=== PATIENT | female | born 1975 | race Asian ===

== ENCOUNTER 2018-02-14 01:46 | Emergency (ER) | payer BC, OTHER | END 2018-02-14 02:44 | disposition left against medical advice (07) | LOC: JER 01:46 | DX: Z53.21 Procedure and treatment not carried out due to patient leaving prior to being seen by health care provider (principal) ==

== ENCOUNTER 2018-02-14 13:17 | Inpatient (IN) | payer BC, OTHER ==
[2018-02-14] MEDS ORDERED: CEFTRIAXONE 1,000 MG in DEXTROSE 5%-WATER - 50 ML IVPB ONE (15:22)
[2018-02-14] MEDS ORDERED: morphine CARPU-JECT 4 MG/1 ML DISP.SYRIN IVPUSH ONE (15:23)
--- NOTE | 2018-02-14 15:24 | PDOC ---
History of Present Illness - General Chief Complaint: Pain Stated Complaint: R/O ACUTE CHOLEYCYSTITIS PCP SENT Time Seen by Provider: 02/14/18 14:55 History Source: Patient Exam Limitations: No Limitations - History of Present Illness Initial Comments: 02/14/18 15:24 The patient is a 42F with no PMH who presents to the ER with RUQ pain. The patient was seen and evaluated at [facility] and was sent with results for CT and US with labwork. The patient states that she has had RUQ pain since this morning and it has worsened. It is sharp, radiates to her back, and associated with anorexia, nausea, vomiting, and chills. She denies any CP, SOB, fever, dysuria, RLQ pain, and swelling. Past History - Past Medical History Allergies/Adverse Reactions: Allergies Allergy/AdvReac Type Severity Reaction Status Date / Time No Known Allergies Allergy Verified 02/14/18 13:26 Home Medications: Ambulatory Orders NK [No Known Home Medication] 02/14/18 COPD: No - Suicide/Smoking/Psychosocial Hx Smoking History: Never smoked Information on smoking cessation initiated: No Hx Alcohol Use: No Drug/Substance Use Hx: No Substance Use Type: None Review of Systems - Review of Systems Able to Perform ROS?: Yes Comments:: 02/14/18 15:52 GENERAL/CONSTITUTIONAL: Positive for chills. No fever. No weakness. HEAD, EYES, EARS, NOSE AND THROAT: No change in vision. No ear pain or discharge. No sore throat. CARDIOVASCULAR: No chest pain, palpitations, or lightheadedness. RESPIRATORY: No cough, wheezing, shortness of breath, or hemoptysis. GASTROINTESTINAL: Positive for nausea, vomiting, diarrhea, and abdominal pain. GENITOURINARY: No dysuria, frequency, hematuria, or change in urination. MUSCULOSKELETAL: No joint or muscle swelling or pain. No neck or back pain. SKIN: No rash or lesions. NEUROLOGIC: No headache, numbness, tingling, weakness, loss of consciousness, or change in strength/sensation. ENDOCRINE: No increased thirst. No abnormal weight change. HEMATOLOGIC/LYMPHATIC: No anemia, easy bleeding, or history of blood clots. ALLERGIC/IMMUNOLOGIC: No hives or skin allergy. Is the patient limited Indonesian proficient: No *Physical Exam - Vital Signs Last Vital Signs Temp Pulse Resp BP Pulse Ox 99.2 F 96 H 18 144/80 100 02/14/18 13:28 02/14/18 13:28 02/14/18 13:28 02/14/18 13:28 02/14/18 13:28 - Physical Exam Comments: 02/14/18 16:05 GENERAL: Well developed, well nourished. Awake and alert. No acute distress. HEENT: Normocephalic, atraumatic. Hearing grossly normal. Moist mucous membranes. PERRLA, EOMI. No conjunctival pallor. Sclera are non-icteric. NECK: Supple. Full ROM. No JVD. CARDIOVASCULAR: Regular rate and rhythm. No murmurs, rubs, or gallops. PULMONARY: No evidence of respiratory distress. Lungs clear to auscultation bilaterally. No wheezing, rales or rhonchi. ABDOMINAL: Very tender to palpation over RUQ and epigastrium. Guarding. Positive subramanian's sign.. MUSCULOSKELETAL: Normal range of motion at all joints. No bony deformities or tenderness. EXTREMITIES: No cyanosis. No clubbing. No edema. No calf tenderness. SKIN: Warm and dry. Normal capillary refill. No rashes. No jaundice. NEUROLOGICAL: Alert, awake, appropriate. Cranial nerves 2-12 intact. Normal speech. Gait is normal without ataxia. PSYCHIATRIC: Cooperative. Good eye contact. Appropriate mood and affect. Heart Score/ECG Review #1 ECG reviewed & interpreted by me at: 16:40 General ECG Interpretation: Sinus Rhythm, Normal Rate, Normal Intervals, No acute ischemic changes Compared to previous ECG there are: No significant change 02/14/18 16:46 NSR Vent rate 97 QRS 88 QTc 454 No acute ischemic changes noted. ED Treatment Course - LABORATORY CBC & Chemistry Diagram: 02/14/18 15:35 02/14/18 15:35 - RADIOLOGY Radiology Studies Ordered: Category Date Time Status CHEST X-RAY PORTABLE* [RAD] Stat Radiology 02/14/18 15:22 Ordered Medical Decision Making - Medical Decision Making 02/14/18 16:06 The patient is a 42F with no PMH who presents to the ER with RUQ pain and labs indicating cholecystitis. Dr. Robledo has been informed. Labs repeated. Imaging noted for gallbladder wall thickening. 02/14/18 16:28 CBC significant for white count of 16. Order for NPO and abx placed. 02/14/18 16:49 I have spoken to Dr. Nuñez, surgery, who will see the patient today. Pt admitted to Dr. Robledo. *DC/Admit/Observation/Transfer Diagnosis at time of Disposition: RUQ pain - Discharge Dispostion Condition at time of disposition: Guarded Admit: Yes - Referrals - Patient Instructions - Post Discharge Activity
[2018-02-14 15:42] LABS: BASO % 0.2 % (0-2.0); HEMATOCRIT 43.1 % (32.4-45.2); LYMPH % 11.5 % (8-40); MCH 29.5 pg (25.7-33.7); MCHC 34.8 g/dl (32.0-36.0); MEAN CELL VOLUME 84.7 fl (80-96); MONO % 4.6 % (3.8-10.2); NEUT % 83.7 % (42.8-82.8); PLATELET COUNT 287 K/MM3 (134-434); RBC 5.09 M/mm3 (3.60-5.2); RDW 12.9 % (11.6-15.6); WHITE BLOOD COUNT 16.3 K/mm3 (4.0-10.0)
[2018-02-14] MEDS ORDERED: CEFTRIAXONE 1 GM/50 ML BAG ONE (15:43)
[2018-02-14] MEDS ORDERED: morphine SULFATE 4 MG/ML VIAL ONE (15:43)
[2018-02-14] MEDS ORDERED: ONDANSETRON 4 MG/2 ML VIAL IVPUSH ONE (15:48)
[2018-02-14] MEDS ORDERED: ONDANSETRON 4 MG/2 ML VIAL ONE (15:49)
[2018-02-14 16:05] LABS: ALBUMIN 4.4 g/dl (3.4-5.0); ANION GAP 7 (8-16); BILIRUBIN,TOTAL 0.4 mg/dL (0.2-1.0); BLOOD UREA NITROGEN 15 mg/dL (7-18); CALCIUM 9.6 mg/dL (8.5-10.1); CHLORIDE 106 mmol/L (98-107); CO2 26 mmol/L (21-32); CREATININE 0.7 mg/dL (0.55-1.02); GLUCOSE,RANDOM 101 mg/dL (74-106); LIPASE 81 U/L (73-393); POTASSIUM 4.2 mmol/L (3.5-5.1); SGOT/AST 13 U/L (15-37); SODIUM 139 mmol/L (136-145); TOT PROT 7.9 g/dl (6.4-8.2)
[2018-02-14 16:09] LABS: ALK PHOS 78 U/L (45-117); SGPT/ALT 16 U/L (12-78)
[2018-02-14 16:11] LABS: INR 1.12 (0.82-1.09); PROTHROMBIN TIME (PATIENT) 12.7 SEC (9.98-11.88)
--- NOTE | 2018-02-14 16:20 | CONSULT ---
Consult Consult Specialty:: general surgery Referred by:: salina Reason for Consultation:: acute cholecystitis - History of Present Illness Chief Complaint: abdominal pain History of Present Illness: 42yo PMH obesity presents with who presents to the ER with RUQ pain. The patient was seen and evaluated at [facility] and was sent with results for CT and US with lab work. The patient states that she has had RUQ pain since this morning and it has worsened. It is sharp, radiates to her back, and associated with anorexia, nausea, vomiting, and chills. She denies any CP, SOB, fever, dysuria, RLQ pain, and swelling. - History Source History Provided By: Patient, Medical Record Limitations to Obtaining History: No Limitations - Past Medical History Additional Medical History: obesity - Past Surgical History Past Surgical History: Yes: (X 2) - Alcohol/Substance Use Hx Alcohol Use: No - Smoking History Smoking history: Never smoked Home Medications - Allergies Allergies/Adverse Reactions: Allergies Allergy/AdvReac Type Severity Reaction Status Date / Time No Known Drug Allergies Allergy Verified 02/15/18 17:01 food seeweed and mushroom Allergy Difficulty Uncoded 02/15/18 16:48 Breathing - Home Medications Home Medications: Ambulatory Orders NK [No Known Home Medication] 02/14/18 Physical Exam Vital Signs: Vital Signs Temperature 99.2 F 02/14/18 13:28 Pulse Rate 96 H 02/14/18 13:28 Respiratory Rate 18 02/14/18 13:28 Blood Pressure 144/80 02/14/18 13:28 O2 Sat by Pulse Oximetry (%) 100 02/14/18 13:28 Constitutional: Yes: No Distress, Calm, Obese Eyes: Yes: Conjunctiva Clear, EOM Intact HENT: Yes: Atraumatic, Normocephalic Neck: Yes: Supple, Trachea Midline Cardiovascular: Yes: Regular Rate and Rhythm, S1, S2. No: Murmur Respiratory: Yes: Regular, CTA Bilaterally Gastrointestinal: Yes: Normal Bowel Sounds, Soft, Abdomen, Obese, Tenderness ( RUQ), Tenderness, Rebound. No: Ascites, Hernia, Palpable Mass, Pulsatile Mass, Tenderness, Epigastrium ...Rectal Exam: Yes: Deferred Labs: CBC, BMP 02/14/18 15:35 Imaging - Results Cat Scan: Other Ultrasound: Other Problem List - Problems (1) Obesity (BMI 30-39.9) Code(s): E66.9 - OBESITY, UNSPECIFIED (2) Leukocytosis Code(s): D72.829 - ELEVATED WHITE BLOOD CELL COUNT, UNSPECIFIED Qualifiers: Leukocytosis type: bandemia Qualified Code(s): D72.825 - Bandemia (3) Acute cholecystitis Assessment/Plan: POD#1 s/p laparoscopic cholecystectomy, doing well Agree with plan for D/C home encourage IS adequate analgesia f/u in2 weeks. Code(s): K81.0 - ACUTE CHOLECYSTITIS (4) RUQ pain Code(s): R10.11 - RIGHT UPPER QUADRANT PAIN
--- NOTE | 2018-02-14 16:32 | PDOC ---
Attending Attestation - Resident Resident Name: Matthew Meza - ED Attending Attestation I have performed the following: I have examined & evaluated the patient, The case was reviewed & discussed with the resident, I agree w/resident's findings & plan, Exceptions are as noted - HPI HPI: 02/14/18 16:38 42 years old no significant past medical history presents to the ER with right upper quadrant pain since this morning obtained an outpatient CT and ultrasound and blood work. Findings notable for acute cholecystitis. Pain is sharp radiating to her back associated with nausea. Moderate in severity no other exacerbating or alleviating factors. ROS: A complete review of 10 out of 10 review of systems is taken and is negative apart from what is previously mentioned below and in the HPI. - Physicial Exam PE: 02/14/18 16:31 Vitals: Triage Vital signs reviewed General Appearance: no acute distress, well nourished well developed, Head: Atraumatic, Cardiac: Regular rate and rhythym, no murmurs, no rubs, no gallops, Lungs: Clear to auscultation bilateral, good air movement bilaterally, Abdomen: Soft, non distended, normal bowel sounds, right upper quadrant/ epigastric tenderness to palpation. Extremities: Full range of motion to all extremities, no cyanosis, clubbing, or edema Skin: Warm and dry, no rashes or lesions, no rash, no petechiae Psych: normal mood, normal affect - Medical Decision Making 02/14/18 16:31 Diagnosis of acute cholecystitis. Surgery aware. Patient cultured made nothing by mouth and covered with ceftriaxone We'll admit to medicine for further management with surgery consult thing.
[2018-02-14] MEDS ORDERED: ONDANSETRON 4 MG/2 ML VIAL IVPB PRN (17:15)
--- NOTE | 2018-02-14 17:15 | HP ---
Admitting History and Physical - Primary Care Physician PCP: Ritu Robledo - Admission Chief Complaint: ABD PAIN RUQ PAIN NAUSEA VOMITING History of Present Illness: 42 Y/O FEMALE NO SIGNIFICANT PMHX HERE SENT FROM URGENT CARE WITH POSITIVE FINDING ON CT ABD WITH CHOLYCYSTITIS. WILL CALL SURGERY IV ABX History Source: Patient, Family Member - Smoking History Smoking history: Never smoked - Alcohol/Substance Use Hx Alcohol Use: No Home Medications - Allergies Allergies/Adverse Reactions: Allergies Allergy/AdvReac Type Severity Reaction Status Date / Time No Known Allergies Allergy Verified 02/14/18 13:26 - Home Medications Home Medications: Ambulatory Orders NK [No Known Home Medication] 02/14/18 Review of Systems - Review of Systems Constitutional: reports: Malaise, Night Sweats, Weakness Eyes: reports: No Symptoms HENT: reports: No Symptoms Neck: reports: No Symptoms Cardiovascular: reports: No Symptoms Respiratory: reports: No Symptoms Gastrointestinal: reports: Abdominal Pain, Indigestion, Nausea Genitourinary: reports: No Symptoms Musculoskeletal: reports: No Symptoms Integumentary: reports: No Symptoms Neurological: reports: No Symptoms Endocrine: reports: No Symptoms Hematology/Lymphatic: reports: No Symptoms Psychiatric: reports: No Symptoms Physical Examination Vital Signs: Vital Signs Temperature 99.2 F 02/14/18 13:28 Pulse Rate 96 H 02/14/18 13:28 Respiratory Rate 18 02/14/18 13:28 Blood Pressure 144/80 02/14/18 13:28 O2 Sat by Pulse Oximetry (%) 100 02/14/18 16:32 Constitutional: Yes: Moderate Distress Eyes: Yes: WNL HENT: Yes: WNL Neck: Yes: WNL Cardiovascular: Yes: WNL Respiratory: Yes: WNL Gastrointestinal: Yes: Tenderness Renal/: Yes: WNL Musculoskeletal: Yes: WNL Extremities: Yes: WNL Edema: No Integumentary: Yes: WNL Wound/Incision: Yes: Clean/Dry Neurological: Yes: WNL ...Motor Strength: WNL Psychiatric: Yes: WNL Labs: CBC, BMP 02/14/18 15:35 02/14/18 15:35 Problem List - Problems (1) Acute cholecystitis Code(s): K81.0 - ACUTE CHOLECYSTITIS (2) RUQ pain Code(s): R10.11 - RIGHT UPPER QUADRANT PAIN Assessment/Plan IV ABX SURGERY EVAL PREOP CLEARANCE NO CONTRAINDICATION TO SURGERY IVF NPO
[2018-02-14 17:36] VITALS: BMI 36.5
[2018-02-14] MEDS: SODIUM CHLORIDE 1,000 ML IV SCH (17:55)
[2018-02-14] MEDS: morphine SULFATE 4 MG/ML VIAL IVPUSH PRN (22:49)
[2018-02-15] MEDS: morphine SULFATE 4 MG/ML VIAL IVPUSH PRN ×2 (07:51→21:01)
[2018-02-15] MEDS: SODIUM CHLORIDE 1,000 ML IV SCH (07:55)
[2018-02-15 08:59] LABS: HEMATOCRIT 37.6 % (32.4-45.2); MCH 29.7 pg (25.7-33.7); MCHC 34.6 g/dl (32.0-36.0); MEAN CELL VOLUME 85.8 fl (80-96); MEAN PLT VOLUME 7.6 fl (7.5-11.1); PLATELET COUNT 213 K/MM3 (134-434); RBC 4.39 M/mm3 (3.60-5.2); RDW 13.1 % (11.6-15.6); WHITE BLOOD COUNT 11.6 K/mm3 (4.0-10.0)
[2018-02-15] MEDS ORDERED: cefTRIAXone SODIUM 1 GM VIAL ONE (09:03)
[2018-02-15] MEDS ORDERED: DEXTROSE 5%-WATER - 50 ML IVPB ONE (09:03)
[2018-02-15 09:30] LABS: ALBUMIN 3.5 g/dl (3.4-5.0); ANION GAP 11 (8-16); BILIRUBIN,TOTAL 0.7 mg/dL (0.2-1.0); BLOOD UREA NITROGEN 13 mg/dL (7-18); CALCIUM 8.5 mg/dL (8.5-10.1); CHLORIDE 109 mmol/L (98-107); CO2 24 mmol/L (21-32); CREATININE 0.6 mg/dL (0.55-1.02); GLUCOSE,RANDOM 94 mg/dL (74-106); POTASSIUM 3.7 mmol/L (3.5-5.1); SGOT/AST 11 U/L (15-37); SGPT/ALT 9 U/L (12-78); SODIUM 144 mmol/L (136-145)
[2018-02-15 09:32] LABS: ALK PHOS 64 U/L (45-117); TOT PROT 6.6 g/dl (6.4-8.2)
[2018-02-15] MEDS ORDERED: CEFTRIAXONE 1 GM in DEXTROSE 5%-WATER - 50 ML IVPB SCH (10:00)
--- NOTE | 2018-02-15 10:37 | EKG ---
Test Reason : Blood Pressure : / mmHG Vent. Rate : 097 BPM Atrial Rate : 097 BPM P-R Int : 134 ms QRS Dur : 088 ms QT Int : 358 ms P-R-T Axes : 058 008 087 degrees QTc Int : 454 ms NORMAL SINUS RHYTHM ABNORMAL ECG NO PREVIOUS ECGS AVAILABLE Confirmed by MD Rhett, Dion ([id number]) on 02/15/2018 10:36:44 AM Referred By: Confirmed By:Dion Delaney MD
[2018-02-15 11:27] LABS: URINE APPEARANCE SLCLOUDY; URINE BILIRUBIN NEGATIVE (<2.0 mg/dL); URINE COLOR DKYELLOW; URINE GLUCOSE (UA) NEGATIVE (NEGATIVE); URINE KETONE 2+ (NEGATIVE); URINE NITRITE NEGATIVE (NEGATIVE); URINE PROTEIN NEGATIVE (NEGATIVE)
[2018-02-15 11:31] LABS: URINE LEUK ESTERASE 1+ (NEGATIVE)
[2018-02-15 11:41] LABS: EPI CELLS RARE /HPF (FEW); URINE BACTERIA RARE /hpf (NONE SEEN); URINE MUCUS FEW
[2018-02-15] MEDS ORDERED: fentaNYL CITRATE 250 MCG/5 ML VIAL ONE (15:40)
[2018-02-15] MEDS ORDERED: MIDAZOLAM HCL 2 MG/2 ML SINGLE DOSE VIAL ONE ×2 (15:41)
[2018-02-15] MEDS ORDERED: ROCURONIUM BROMIDE 50 MG/5 ML VIAL ONE (15:41)
[2018-02-15] MEDS ORDERED: PROPOFOL 20 ML ONE ×2 (15:41→17:12)
[2018-02-15] MEDS ORDERED: CEFOXITIN SODIUM 2 GM IVPB ONE (16:07)
--- NOTE | 2018-02-15 16:30 | PN ---
Progress Note, Physician Chief Complaint: S/P CHOLCYSTECTOMY COMFORTABLE ASLEEP - Current Medication List Current Medications: Active Medications Sodium Chloride (Normal Saline -) 1,000 mls @ 83 mls/hr IV ASDIR DAVINA Last Admin: 02/15/18 07:55 Dose: 83 mls/hr Ceftriaxone Sodium 1 gm/ (Dextrose) 50 mls @ 100 mls/hr IVPB DAILY [facility] Last Admin: 02/15/18 10:41 Dose: 100 mls/hr Metronidazole (Flagyl 500mg Premixed Ivpb -) 500 mg in 100 mls @ 100 mls/hr IVPB Q8H-IV DAVINA Last Admin: 02/15/18 09:31 Dose: 100 mls/hr Morphine Sulfate (Morphine Sulfate) 4 mg IVPUSH Q6H PRN PRN Reason: PAIN LEVEL 6-10 Last Admin: 02/15/18 07:51 Dose: 4 mg Ondansetron HCl (Zofran Injection) 8 mg IVPB Q6H PRN PRN Reason: NAUSEA - Objective Vital Signs: Vital Signs Temperature 98.2 F 02/15/18 15:06 Pulse Rate 91 H 02/15/18 15:06 Respiratory Rate 20 02/15/18 15:06 Blood Pressure 134/84 02/15/18 15:06 O2 Sat by Pulse Oximetry (%) 95 02/15/18 09:00 Constitutional: Yes: Mild Distress Eyes: Yes: WNL HENT: Yes: WNL Neck: Yes: WNL Cardiovascular: Yes: WNL Respiratory: Yes: WNL Gastrointestinal: Yes: Tenderness Genitourinary: Yes: Other Musculoskeletal: Yes: WNL Extremities: Yes: WNL Edema: No Peripheral Pulses WNL: Yes Integumentary: Yes: WNL Wound/Incision: Yes: Dressing Dry and Intact Neurological: Yes: WNL ...Motor Strength: WNL Psychiatric: Yes: WNL Labs: CBC, BMP 02/15/18 07:50 02/15/18 07:50 INR, PTT INR 1.12 (0.82-1.09) 02/14/18 15:35 Problem List - Problems (1) Acute cholecystitis Code(s): K81.0 - ACUTE CHOLECYSTITIS (2) RUQ pain Code(s): R10.11 - RIGHT UPPER QUADRANT PAIN Assessment/Plan S/P LAP CHOL IVF PAIN CONTROL CLEAR DIET IN MORNING DVT PROPHYLAXIS OOB TO CHAIR INCENTIVE SPIROMETRY IV ABX
[2018-02-15] MEDS ORDERED: BUPIVACAINE HCL/PF 0.5% (5MG/ML) 10 ML VIAL IJ ONE ×2 (17:02→17:21)
[2018-02-15] MEDS ORDERED: NEOSTIGMINE METHYLSULFATE 0.5 MG/ML - 10 ML MDV ONE (17:05)
[2018-02-15] MEDS ORDERED: GLYCOPYRROLATE 0.2 MG/1 ML VIAL ONE (17:05)
[2018-02-15] MEDS ORDERED: ONDANSETRON 4 MG/2 ML VIAL ONE (17:05)
[2018-02-15] MEDS ORDERED: MEPERIDINE HCL CARPU-JECT 25 MG/1 ML DISP.SYRIN ONE (17:34)
[2018-02-15] MEDS ORDERED: MEPERIDINE HCL CARPU-JECT 25 MG/1 ML DISP.SYRIN IVPUSH ONE ×3 (17:35→19:00)
[2018-02-15] MEDS ORDERED: ONDANSETRON 4 MG/2 ML VIAL IVPUSH PRN ×2 (17:43→18:38)
[2018-02-15] MEDS ORDERED: LACTATED RINGERS SOLUTION 1,000 ML IV SCH (17:45)
--- NOTE | 2018-02-15 18:05 | OP ---
Operative Note - Note: Operative Date: 02/15/18 Pre-Operative Diagnosis: Acute Cholecystitis Operation: Laparoscopic Cholecystectomy Findings: distended edematous and inflamed gallbladder, critical view identified. 55ml of green bile decompressed before dissecting Post-Operative Diagnosis: Same as Pre-op Surgeon: Evan Nuñez Donor Processor: Mode Miller Anesthesiologist/SHIPSMITH: Edmundo Love Anesthesia: General, Local (0.5% marcaine) Estimated Blood Loss (mls): 5 Fluid Volume Replaced (mls): 800 Operative Report Dictated: Yes
[2018-02-15] MEDS ORDERED: D5-1/2NS+20 MEQ KCL - 20 MEQ/1,000 ML INFUS.BAG IV SCH (18:15)
[2018-02-15] MEDS ORDERED: ONDANSETRON 4 MG/2 ML VIAL IVPB PRN (18:38)
[2018-02-15] MEDS ORDERED: morphine SULFATE 4 MG/ML VIAL IVPUSH ONE (23:45)
[2018-02-16] MEDS: morphine SULFATE 4 MG/ML VIAL IVPUSH PRN (06:28)
[2018-02-16 07:34] LABS: BASO % 0.4 % (0-2.0); HEMATOCRIT 33.6 % (32.4-45.2); HEMOGLOBIN 11.6 GM/dL (10.7-15.3); LYMPH % 14.7 % (8-40); MCH 29.7 pg (25.7-33.7); MCHC 34.7 g/dl (32.0-36.0); MEAN CELL VOLUME 85.6 fl (80-96); MEAN PLT VOLUME 7.8 fl (7.5-11.1); MONO % 6.8 % (3.8-10.2); NEUT % 78.1 % (42.8-82.8); PLATELET COUNT 210 K/MM3 (134-434); RBC 3.92 M/mm3 (3.60-5.2); RDW 12.7 % (11.6-15.6)
[2018-02-16 08:57] LABS: CHLORIDE 109 mmol/L (98-107); SODIUM 140 mmol/L (136-145)
[2018-02-16 09:05] LABS: ALBUMIN 2.9 g/dl (3.4-5.0); ALK PHOS 53 U/L (45-117); ANION GAP 8 (8-16); BILIRUBIN,TOTAL 0.4 mg/dL (0.2-1.0); BLOOD UREA NITROGEN 11 mg/dL (7-18); CALCIUM 7.9 mg/dL (8.5-10.1); CO2 23 mmol/L (21-32); CREATININE 0.5 mg/dL (0.55-1.02); GLUCOSE,RANDOM 87 mg/dL (74-106); SGOT/AST 27 U/L (15-37); SGPT/ALT 16 U/L (12-78); TOT PROT 5.6 g/dl (6.4-8.2)
[2018-02-16] MEDS ORDERED: DEXTROSE 5%-WATER - 50 ML IVPB ONE (09:27)
[2018-02-16] MEDS ORDERED: cefTRIAXone SODIUM 1 GM VIAL ONE (09:27)
[2018-02-16] MEDS ORDERED: CEFTRIAXONE 1 GM in DEXTROSE 5%-WATER - 50 ML IVPB SCH (10:00)
[2018-02-16] MEDS ORDERED: ACETAMINOPHEN 325 MG TABLET (FP) PO PRN (10:56)
--- NOTE | 2018-02-16 10:58 | DS ---
Physical Examination Vital Signs: Vital Signs Temperature 98.3 F 02/16/18 09:15 Pulse Rate 89 02/16/18 09:15 Respiratory Rate 20 02/16/18 09:15 Blood Pressure 116/71 02/16/18 09:15 O2 Sat by Pulse Oximetry (%) 98 02/15/18 21:00 Findings/Remarks: AWAKE ALERT + URINE OUTPUT +AAPETITE NO PAIN OR FEVERS Constitutional: Yes: No Distress Eyes: Yes: WNL HENT: Yes: WNL Neck: Yes: WNL, Rigid Respiratory: Yes: WNL Gastrointestinal: Yes: Other (POSTOP TENDERNESS, CLEAN SITE) Renal/: Yes: WNL Musculoskeletal: Yes: WNL Extremities: Yes: WNL Edema: No Peripheral Pulses WNL: Yes Integumentary: Yes: WNL Wound/Incision: Yes: Clean/Dry Neurological: Yes: WNL ...Motor Strength: WNL Psychiatric: Yes: WNL Labs: CBC, BMP 02/16/18 07:05 02/16/18 07:05 Discharge Summary Reason For Visit: RT UPPER QUADRANT ABD PAIN Current Active Problems Acute cholecystitis (Acute) Leukocytosis (Acute) Obesity (BMI 30-39.9) (Acute) RUQ pain (Acute) Procedures: Principal: LAPCHOL Hospital Course: ADMITTED RUQ PAIN WITH CHOLCYSTITIS, LAP CHOL DONE NO COMPLICATIONS, DC HOME Condition: Improved - Instructions Diet, Activity, Other Instructions: SEE YOUR PMD IN 2 DAYS LOW FAT DIET Referrals: Ritu Robledo MD [Primary Care Provider] - Disposition: HOME - Home Medications Comprehensive Discharge Medication List: Ambulatory Orders NK [No Known Home Medication] 02/14/18
--- NOTE | 2018-02-16 11:21 | PN ---
Progress Note, Physician Chief Complaint: abdominal pain History of Present Illness: 42yo PMH obesity presents with who presents to the ER with RUQ pain. The patient was seen and evaluated at [facility] and was sent with results for CT and US with lab work. - Current Medication List Current Medications: Active Medications Acetaminophen (Tylenol -) 650 mg PO Q6H PRN PRN Reason: PAIN OR FEVER - Objective Vital Signs: Vital Signs Temperature 98.3 F 02/16/18 09:15 Pulse Rate 89 02/16/18 09:15 Respiratory Rate 20 02/16/18 09:15 Blood Pressure 116/71 02/16/18 09:15 O2 Sat by Pulse Oximetry (%) 98 02/15/18 21:00 Constitutional: Yes: No Distress, Calm Eyes: Yes: Conjunctiva Clear, EOM Intact HENT: Yes: Atraumatic, Normocephalic Cardiovascular: Yes: Regular Rate and Rhythm Respiratory: Yes: Regular, CTA Bilaterally Gastrointestinal: Yes: Normal Bowel Sounds, Soft, Abdomen, Obese. No: Tenderness ...Rectal Exam: Yes: Deferred Genitourinary: No: CVA Tenderness - Left, CVA Tenderness - Right Extremities: No: Cool, Cyanosis Wound/Incision: Yes: Clean/Dry, Well Approximated, Steri Strips Neurological: Yes: Alert, Oriented Psychiatric: Yes: Alert, Oriented Labs: CBC, BMP 02/16/18 07:05 02/16/18 07:05 INR, PTT INR 1.12 (0.82-1.09) 02/14/18 15:35 Problem List - Problems (1) Acute cholecystitis Assessment/Plan: POD#1 s/p laparoscopic cholecystectomy, doing well Agree with plan for D/C home encourage IS adequate analgesia f/u in2 weeks. Code(s): K81.0 - ACUTE CHOLECYSTITIS (2) Obesity (BMI 30-39.9) Code(s): E66.9 - OBESITY, UNSPECIFIED (3) Leukocytosis Code(s): D72.829 - ELEVATED WHITE BLOOD CELL COUNT, UNSPECIFIED Qualifiers: Leukocytosis type: bandemia Qualified Code(s): D72.825 - Bandemia (4) RUQ pain Code(s): R10.11 - RIGHT UPPER QUADRANT PAIN
[2018-02-16 14:32] VITALS: BP 115/72; PULSE 83; TEMP 97.7
--- NOTE | 2018-02-18 09:36 | PATH ---
Surgical Pathology Report Patient Name: STAN BEDOLLA [facility]. Rec. #: [id number] /Age/Gender: 1975 (Age: 42) / F Account: [id number] Location: [address] [place] [address]/[facility] Taken: 02/15/2018 Received: 02/16/2018 Reported: 02/18/2018 Physicians: Evan Nuñez M.D. Specimen(s) Received GALLBLADDER AND STONES Clinical History Acute cholecystitis Final Diagnosis GALLBLADDER, CHOLECYSTECTOMY: ACUTE AND CHRONIC CHOLECYSTITIS, AND CHOLELITHIASIS. BENIGN PERICYSTIC LYMPH NODE PRESENT. Electronically Signed Abdullahi Ricketts M.D. Gross Description Received in formalin, labeled with the patient's name and indicated on the requisition to be "gallbladder and stones," is a 9 x 4.5 x 3.4 cm. gallbladder with a 0.2 cm. in length portion of cystic duct attached. The outer surface is sneed and varies from smooth to shaggy. The lumen contains red fluid, along with 10 yellow polyhedral calculi each of which is between 0.8 and 1.2 cm in greatest dimension. The mucosa is red and putnam with a velvety surface. The wall of the gallbladder measures 0.7 cm. in thickness. A possible pericystic lymph node is present. [employer] sections are submitted in one cassette. [facility]/02/16/2018 [facility]/02/16/2018
--- NOTE | 2018-02-21 14:11 | OP ---
DATE OF OPERATION: 02/15/2018 PREOPERATIVE DIAGNOSIS: Acute cholecystitis. POSTOPERATIVE DIAGNOSIS: Acute cholecystitis. PROCEDURE: Laparoscopic cholecystectomy. ATTENDING SURGEON: Evan Nuñez MD MAINTENANCE ENGINEER OIL FIELD: Mode Miller MD ANESTHESIA: Edmundo Love MD, general with local 0.5% Marcaine a total of 20 mL given in the area in block fashion. ESTIMATED BLOOD LOSS: 5 mL. IV FLUID: 800 mL crystalloid. SPECIMEN: Sent for pathology, gallbladder and stones. FINDINGS: A distended, edematous gallbladder. It was inflamed. Crual view was identified. There was 55 mL green bile was decompressed before dissection of the gallbladder from the liver. INDICATIONS: The patient is a 42-year-old female presenting with right upper quadrant pain first episode, slight leukocytosis, and ultrasound confirming the presence of acute cholecystitis. In addition, she had a CT. Her workup was done at an outside institution. Studies were reviewed preoperatively. She was counseled regarding the risks, benefits, and alternatives to surgical excision, signed informed consent, and was taken for the procedure. DESCRIPTION OF PROCEDURE: The patient was brought to the operating room. Placed in supine position on the operating room table with the right arm tucked and the left arm extended 90 degrees perpendicular to the body's axis. The lower extremities had bilateral SCDs placed. The patient was induced with general anesthesia and endotracheally intubated at which point we proceeded with shave, prep, and drape of the anterior abdominal wall. We proceeded first with sterile prep and drape. Once this was completed, a formal time-out was completed identifying the operative procedure. With all parties in agreement, we proceeded with standard Garcia entry in the supraumbilical position. A 15-blade scalpel was used to incise the skin. The incision was deepened and widened with Bovie cautery to the anterior fascia. The fascia was elevated and then entered bluntly towards the umbilicus. Once intra-abdominal viscera was cleared, Garcia port was installed into the abdomen, and pneumoperitoneum was established at 15 mmHg. A 5-mm 30-degree scope was then used to inspect the site. They appeared to be atraumatic at which point we looked towards the right upper quadrant identifying the distended gallbladder. Additional port sites were installed under direct visualization 5 mm at the subxiphoid position and 2 in the right abdomen. An Endo decompression needle with the gallbladder grasped was used to decompress the dome of the gallbladder under direct visualization 55 mL of green bile. The entry of the needle was then grasped and retracted cranially, and the infundibulum of the gallbladder was used to retract towards the right side of the abdomen. The cystic structures were then identified. They were dissected using a [place] dissector, and planes were developed posterior to the cystic duct and cystic artery. Once the structures had been identified and the critical view was noted, the cystic duct and artery were transected using 5-mm clips from the subxiphoid position. They were transected using Endo August and then we began elevation of the gallbladder from the liver bed using a hook Bovie cautery. Once completed, the camera was re-sided to the subxiphoid position, and the gallbladder was retrieved through an umbilical port. This was done without spillage. Care was taken then to re-establish a pneumoperitoneum and inspect the site on the liver bed. Hemostasis was obtained using Bovie cautery where necessary. A small amount of irrigation was done. Clots were suctioned. Instrument counts were correct. The pneumoperitoneum was then relieved after the ports were removed under direct visualization. Care was then taken to close each of the port site, first the umbilical using 0 Vicryl in interrupted fashion figure of eight to ablate the space and then 4-0 Vicryl at the level of the skin in subcuticular fashion. Skin was cleaned. Sterile dressings were placed. Counts were correct. The patient was returned to recovery in stable condition. Tolerated procedure well. MD FREDIS [id number]
== END 2018-02-16 14:34 | disposition home or self-care (01) | DRG 419 ==
LOC: JER 13:17 → JERBED 15:24 → J5S 17:08
PROVIDERS: ADMIT Family Medicine; ATTEND Family Medicine
PROC: 0FT44ZZ Resection of Gallbladder, Percutaneous Endoscopic Approach (ICD-10-PCS; principal; 2018-02-15 16:45)
DX: K81.0 Acute cholecystitis (principal); E66.8 Other obesity; Z68.36 Body mass index [BMI] 36.0-36.9, adult; D72.829 Elevated white blood cell count, unspecified; R10.11 Right upper quadrant pain; R11.2 Nausea with vomiting, unspecified
CPT/HCPCS: 36415; 71045-TC-FY; 80053; 81003; 81015; 83690; 84703; 85025; 85027; 85610; 86850; 86900; 86901; 93005; 93010; 94010; 94760; 99284-25; J7030

== ENCOUNTER 2018-03-23 14:16 | Emergency (ER) | payer OTHER ==
[2018-03-23 14:22] VITALS: BP 117/82; PULSE 78; TEMP 98.1; BMI 36.1
--- NOTE | 2018-03-23 15:15 | CONSULT ---
Consult Consult Specialty:: general surgery Reason for Consultation:: right abdominal port site dehissance (s/p Lap Haleigh) - History of Present Illness Chief Complaint: right abdominal post op wound infection History of Present Illness: 42 yo female no significant PMH s/p Laparoscopic cholecystectomy 02/15/2018 she reports having accidentally hitting her abdomen this weekend and having dislodged a scab on her right abdominal wound laparoscopic port site. She noted some drainage this morning. She denies any associated fever or chills. She is in today for evaluation. - History Source History Provided By: Patient, Medical Record Limitations to Obtaining History: No Limitations - Past Medical History ...LMP: 01/23/18 Additional Medical History: obesity - Past Surgical History Past Surgical History: Yes: (X 2) - Alcohol/Substance Use Hx Alcohol Use: No - Smoking History Smoking history: Never smoked Home Medications - Allergies Allergies/Adverse Reactions: Allergies Allergy/AdvReac Type Severity Reaction Status Date / Time No Known Drug Allergies Allergy Verified 03/23/18 14:17 food seeweed and mushroom Allergy Difficulty Uncoded 03/23/18 14:17 Breathing - Home Medications Home Medications: Ambulatory Orders Amox-Tr/K Cl [Augmentin - 875Mg Tablet] 1 tab PO BID 7 Days #14 tablet 03/23/18 Review of Systems - Review of Systems Constitutional: denies: Chills, Fever Eyes: denies: Blurred Vision, Recent Change in Vision HENT: denies: Difficult Swallowing, Throat Pain Neck: denies: Pain on Movement, Tenderness Cardiovascular: denies: Chest Pain, Palpitations Respiratory: denies: Cough, SOB Gastrointestinal: denies: Abdominal Pain, Constipation, Diarrhea Genitourinary: denies: Burning, Discharge Breasts: reports: No Symptoms Reported. denies: Pain Musculoskeletal: denies: Joint Swelling, Muscle Weakness Integumentary: denies: Lesions, Rash Neurological: denies: Seizure, Syncope Endocrine: denies: Unexplained Weight Gain, Unexplained Weight Loss Hematology/Lymphatic: denies: Easily Bruised, Excessive Bleeding Psychiatric: denies: Anxiety, Depression Physical Exam Vital Signs: Vital Signs Temperature 98.1 F 03/23/18 14:18 Pulse Rate 78 03/23/18 14:18 Respiratory Rate 18 03/23/18 14:18 Blood Pressure 117/82 03/23/18 14:18 O2 Sat by Pulse Oximetry (%) 100 03/23/18 14:18 Constitutional: Yes: No Distress, Calm, Obese Eyes: Yes: Conjunctiva Clear, EOM Intact HENT: Yes: Atraumatic, Normocephalic Neck: Yes: Supple, Trachea Midline Cardiovascular: Yes: Regular Rate and Rhythm, S1, S2 Respiratory: Yes: Regular, CTA Bilaterally Gastrointestinal: Yes: Normal Bowel Sounds, Soft Renal/: No: CVA Tenderness - Left, CVA Tenderness - Right Musculoskeletal: No: Muscle Pain, Muscle Weakness Extremities: No: Cool, Cyanosis Edema: No Peripheral Pulses WNL: Yes Integumentary: No: Jaundice, Rash Wound/Incision: Yes: Open to air, Sutures Removed, Reddened, Other (1cm X1cm X1cm right lateral abdominal wall. fibrinous exudate with surrounding erythema 1cm.) Neurological: Yes: Alert, Oriented Psychiatric: Yes: Alert, Oriented Problem List - Problems (1) Postoperative wound breakdown Assessment/Plan: 42 yo female no significant PMH s/p Laparoscopic cholecystectomy 02/15/2018 now with a right abdominal wound laparoscopic port site dehissance and infection. Bedside debridement of wound PO antibiotics for 7 days Arrange for VNS to teach the patient 2-3 times weekly for a few visits Location: Right lateral abdominal wall wound Measurement: [id number] some fibrionous exudate, and a 1cm rim of erythema Dressin/4" iodoform, 2X2 inch gauze and tape f/u in two weeks in surgery clinic with Dr. Nuñez Code(s): T81.31XA - DISRUPTION OF EXTERNAL OPERATION (SURGICAL) WOUND, NEC, INIT Qualifiers: Encounter type: initial encounter Qualified Code(s): T81.31XA - Disruption of external operation (surgical) wound, not elsewhere classified, initial encounter (2) Postoperative wound cellulitis Code(s): T81.4XXA - INFECTION FOLLOWING A PROCEDURE, INITIAL ENCOUNTER Qualifiers: Encounter type: initial encounter Qualified Code(s): T81.4XXA - Infection following a procedure, initial encounter
--- NOTE | 2018-03-23 15:42 | PDOC ---
History of Present Illness - General Chief Complaint: Wound Stated Complaint: SENT BY PCP Time Seen by Provider: 03/23/18 14:49 History Source: Patient Exam Limitations: No Limitations - History of Present Illness Initial Comments: 03/23/18 15:[address] Persaud for wound- draining wound from trocar site. , and wound care. Denies pain/ fevers/ problems Timing/Duration: unsure Severity: mild Associated Symptoms: reports: denies symptoms Past History - Travel Traveled outside of the country in the last 30 days: No Close contact w/someone who was outside of country & ill: No - Past Medical History Allergies/Adverse Reactions: Allergies Allergy/AdvReac Type Severity Reaction Status Date / Time No Known Drug Allergies Allergy Verified 03/23/18 14:17 food seeweed and mushroom Allergy Difficulty Uncoded 03/23/18 14:17 Breathing Home Medications: Ambulatory Orders Amox-Tr/K Cl [Augmentin - 875Mg Tablet] 1 tab PO BID 7 Days #14 tablet 03/23/18 Anemia: No Asthma: No Cancer: No Cardiac Disorders: Yes (h/o heart mumur) CVA: No COPD: No CHF: No Dementia: No Diabetes: No GI Disorders: Yes (abdominal pain gallbladder) Disorders: No HTN: No Hypercholesterolemia: No Liver Disease: No Seizures: No Thyroid Disease: No - Surgical History Appendectomy: No Cardiac Surgery: No Cholecystectomy: Yes Lung Surgery: No Neurologic Surgery: No Orthopedic Surgery: No - Suicide/Smoking/Psychosocial Hx Smoking History: Never smoked Cigars Per Day: 0 Hx Alcohol Use: No Drug/Substance Use Hx: No Substance Use Type: None Hx Substance Use Treatment: No Review of Systems - Review of Systems Able to Perform ROS?: Yes Is the patient limited Khmer proficient: Yes Constitutional: Yes: See HPI. No: Symptoms Reported, Fever ABD/GI: Yes: Symptoms Reported, See HPI, Other (mild tenderness to wound sites ) . No: Abdominal Distended Musculoskeletal: No: Symptoms Reported Integumentary: Yes: Symptoms Reported, See HPI, Other Neurological: Yes: Symptoms reported All Other Systems: Reviewed and Negative *Physical Exam - Vital Signs Last Vital Signs Temp Pulse Resp BP Pulse Ox 98.1 F 78 18 117/82 100 03/23/18 14:18 03/23/18 14:18 03/23/18 14:18 03/23/18 14:18 03/23/18 14:18 - Physical Exam General Appearance: Yes: Nourished, Appropriately Dressed. No: Apparent Distress HEENT: positive: VARUN, Normal ENT Inspection, TMs Normal, Pharynx Normal Gastrointestinal/Abdominal: positive: Soft. negative: Tender, Distended, Guarding, Rebound Extremity: positive: Normal Range of Motion. negative: Normal Capillary Refill Integumentary: positive: Normal Color, Warm (tunnelling wound to upper mid quad / mright ) Neurologic: positive: gifted teacher II-XII NML intact, Fully Oriented, Alert, Normal Mood/ Affect, Normal Response, Motor Strength 03/12 *DC/Admit/Observation/Transfer Diagnosis at time of Disposition: Visit for wound check - Discharge Dispostion Disposition: HOME Condition at time of disposition: Stable Decision to Admit order: No - Prescriptions Prescriptions: Amox-Tr/K Cl [Augmentin - 875Mg Tablet] 1 tab PO BID 7 Days #14 tablet - Referrals Referrals: Ritu Robledo MD [Primary Care Provider] - Evan Nuñez MD [Staff Physician] - - Patient Instructions Printed Discharge Instructions: DI for Wound Infection, Surgical Site Infection Additional Instructions: Postoperative instructions: You had a debridement of right abdominal on [address] Evan Nuñez of [facility]. Wound care: Location: Right lateral abdominal wall wound Measurement: [id number] some fibrionous exudate, and a 1cm rim of erythema Dressin/4" iodoform, 2X2 inch gauze and tape Activity: You may shower daily starting then, just pat the wound areas dry. Pain: For pain, you may use and alternate Tylenol (acetaminophen) and/or ibuprofen every 6 hours each as needed; this means that you can take one OR the other at 3-hour intervals. Follow-up: Call Dr. Miller's office at [phone] to make your postop appointment (Wednesday 1-2 weeks after surgery as advised). Clinic is held in the Diagnostic [facility] on the first floor of [facility]. Call the office if you have: * increasing pain not responsive to pain medication * fever of 101F or higher * unusual or increasing bleeding or drainage from wounds * increasing redness or swelling at wound sites Also, see your primary medical doctor within 1-2 weeks. - Post Discharge Activity
--- NOTE | 2018-03-23 15:44 | PROC ---
Incision and Drainage Indication/Location: right lateral abdominal wall Risks and Benefits Explained: Yes Betadine cleansed: Yes Anesthesia: 1% Lidocaine Blade Size: 11 Drainage: none Irrigated with Normal Saline: Yes Iodinated Packin/4 in Sterile Dressing Applied: Yes - Remarks Remarks: 1cm rim or surrounding erythema, fibrinous exudate, no purulent drainage, no culture, [id number] packed with 1/4inch iodoform
== END 2018-03-23 16:05 | disposition home or self-care (01) ==
LOC: JERFT 14:16
PROC: 0W9F00Z Drainage of Abdominal Wall with Drainage Device, Open Approach (ICD-10-PCS; principal; 2018-03-23)
DX: Z48.01 Encounter for change or removal of surgical wound dressing (principal)
CPT/HCPCS: 99281-25

== ENCOUNTER 2018-03-25 15:58 | Emergency (ER) | payer OTHER ==
--- NOTE | 2018-03-25 16:21 | PDOC ---
Rapid Medical Evaluation Time Seen by Provider: 03/25/18 16:18 Medical Evaluation: Allergies Allergy/AdvReac Type Severity Reaction Status Date / Time No Known Drug Allergies Allergy Verified 03/23/18 14:17 food seeweed and mushroom Allergy Difficulty Uncoded 03/23/18 14:17 Breathing I have performed a brief in-person evaluation of this patient. The patient presents with a chief complaint of: needs gallbladder dressing changed; supposed to be seen by Dr. Miller; currently on day 3 of augmentin for wound infection Pertinent physical exam findings: dressing to right upper flank region I have ordered the following: nothing The patient will proceed to the ED for further evaluation. Discharge Disposition - Diagnosis Visit for wound check - Referrals - Patient Instructions - Post Discharge Activity
[2018-03-25 16:26] VITALS: BP 135/88; PULSE 68; TEMP 98.7; BMI 36.1
--- NOTE | 2018-03-25 16:42 | PDOC ---
Suture Removal/Wound Check HPI - History of Present Illness Chief Complaint: Revisit,Wound Recheck Stated Complaint: REVISIT/ DRESSING CHANGE (PCP SENT) Time Seen by Provider: 03/25/18 16:18 History Source: Yes: Patient Exam Limitations: Yes: No Limitations Treated at: [facility] ED - Previous ED Treatment Type of procedure performed on last visit: Yes: I&D of Abscess Tetanus Immunization: Yes: Up to Date Antibiotics Prescribed: No - Onset of Previous Treatment Comment:: 03/25/18 17:11 Patient came to the emergency department for patient came to emergency department for wound check and dressing change. Was seen by Dr. Persaud here 2 days ago and right mid quadrant wound site was cleaned and packed with iodoform gauze. Home health/visiting nurse service was to a been organized for wound care and follow-up. Patient states was never called or no follow-up appointments made by anyone. [facility] discussed this with Dr. Persaud's office twice today who stated if visiting nurse didn't call she should call her private physician. By the time this all had been discussed, patient's private physicians office was closed for the weekend. Had been draining patient was uncertain as to direction therefore came to emergency department for wound check and dressing change. Denies pain, fevers, bloating, worsened drainage. States is continuing antibiotics and has only needed Tylenol for mild pain relief. Past History - Travel Traveled outside of the country in the last 30 days: No Close contact w/someone who was outside of country & ill: No - Past Medical History Allergies/Adverse Reactions: Allergies Allergy/AdvReac Type Severity Reaction Status Date / Time No Known Drug Allergies Allergy Verified 03/25/18 16:22 food seeweed and mushroom Allergy Difficulty Uncoded 03/25/18 16:22 Breathing Home Medications: Ambulatory Orders Amox-Tr/K Cl [Augmentin - 875Mg Tablet] 1 tab PO BID 7 Days #14 tablet 03/23/18 Anemia: No Asthma: No Cancer: No Cardiac Disorders: Yes (h/o heart mumur) CVA: No COPD: No CHF: No Dementia: No Diabetes: No GI Disorders: Yes (abdominal pain gallbladder) Disorders: No HTN: No Hypercholesterolemia: No Liver Disease: No Seizures: No Thyroid Disease: No - Surgical History Appendectomy: No Cardiac Surgery: No Cholecystectomy: Yes Lung Surgery: No Neurologic Surgery: No Orthopedic Surgery: No - Suicide/Smoking/Psychosocial Hx Smoking History: Never smoked Cigars Per Day: 0 Hx Alcohol Use: No Drug/Substance Use Hx: No Substance Use Type: None Hx Substance Use Treatment: No Suture Removal/Wound Check PE - Physical Exam Laceration/Wound Check Symptoms: reports: None. denies: Fever, Chills Current Severity Level: None Maximum Severity Level: None Pain Localization: None *Review of Systems - Review of Systems Able to Perform ROS?: Yes Constitutional: Yes: Symptoms Reported, See HPI. No: Fever, Malaise HEENTM: Yes: Symptoms Reported ABD/GI: Yes: See HPI. No: Symptoms Reported, Nausea, Vomiting All Other Systems: Reviewed and Negative Medical Decision Making - Medical Decision Making 03/25/18 17:15 Packing removed without incident, revealing some mild purulent drainage and wound site approximately 1 cm deep. No redness, tenderness, or worsened cellulitis noted. Cleaned and repacked with half-inch iodoform gauze and dressing. Instructed to remove packing on Wednesday if drainage is lessened or none and clean wound in shower daily until well-healed. If there is significant amount of drainage consistent with what was shown today to leave packing intact , redress to keep area clean, and follow-up with surgeons office on Wednesday. Understands to continue antibiotics, and to return to emergency department for worsened pain, drainage, swelling or fever. *DC/Admit/Observation/Transfer Diagnosis at time of Disposition: Visit for wound check - Discharge Dispostion Disposition: HOME Condition at time of disposition: Stable Decision to Admit order: No - Referrals Referrals: Ritu Robledo MD [Primary Care Provider] - - Patient Instructions - Post Discharge Activity
== END 2018-03-25 17:20 | disposition home or self-care (01) ==
LOC: JER 15:58 → JERFT 15:58
DX: Z48.01 Encounter for change or removal of surgical wound dressing (principal); Z98.890 Other specified postprocedural states
CPT/HCPCS: 99281-25

== ENCOUNTER 2018-11-06 01:27 | Emergency (ER) | payer OTHER ==
[2018-11-06 02:06] VITALS: BP 110/65; PULSE 94; TEMP 98.6; BMI 35.2
[2018-11-06] MEDS ORDERED: LORATADINE 10 MG TABLET PO ONE (02:47)
[2018-11-06] MEDS ORDERED: TRIAMCINOLONE ACET 40MG/1ML VIAL IM ONE (03:31)
--- NOTE | 2018-11-06 03:31 | PDOC ---
History of Present Illness - General Chief Complaint: Allergic Reaction Stated Complaint: ALLERGIC REACTION/HIVES Time Seen by Provider: 11/06/18 02:29 History Source: Patient Exam Limitations: No Limitations - History of Present Illness Initial Comments: 11/06/18 02:49 HISTORY OF PRESENT ILLNESS: 43-year-old woman past medical history of PCOS and cholecystectomy who presents to the emergency department for evaluation of hives to her body. She reports she has had pruritic hives to her body for the past 24 hours. Patient states she was seen in urgent care center today and was told to apply cortisone cream to the lesions. Patient states she tried hydrocortisone cream with minimal relief has been taking Benadryl 50 mg every 4 hours with minimal relief. Patient states she took her son's "asthma medicine" which has not helped with her symptoms. Patient denies any change in soaps, shampoos, conditioners, lotions, cosmetics, perfumes, laundry detergents, fabric softeners, distal common foods. Patient states her doctor increased her dose of spironolactone 25 mg to 50 mg 2 weeks ago but has had no problems up until yesterday. She denies throat itching or SOB. No recent travel or sick contacts. PAST MEDICAL HISTORY: see HPI SURGICAL HISTORY: see HPI ALLERGIES: No known drug allergies REVIEW OF SYSTEMS General/Constitutional: Denies fever or chills. Denies weakness, weight change. HEENT: Denies change in vision. Denies ear pain or discharge. Denies sore throat. Cardiovascular: Denies chest pain or shortness of breath. Respiratory: Denies cough, wheezing, or hemoptysis. Gastrointestinal: Denies nausea, vomiting, diarrhea or constipation. Denies rectal bleeding. Genitourinary: Denies dysuria, frequency, or change in urination. Musculoskeletal: Denies joint or muscle swelling or pain. Denies neck or back pain. Skin and breasts: Rash to trunk and legs. Neurologic: Denies headache, vertigo, loss of consciousness, or loss of sensation. Psychiatric: Denies depression or anxiety. Endocrine: Denies increased thirst. Denies abnormal weight change. Hematologic/Lymphatic: Denies anemia, easy bleeding, or history of blood clots. Allergic/Immunologic: Denies hives or skin allergy. Denies latex allergy. PHYSICAL EXAM General Appearance: Well-appearing, appropriately dressed. No apparent distress , no intoxication. HEENT: EOMI, PERRLA, normal ENT inspection, normal voice, TMs normal, pharynx normal. No conjunctival pallor. No photophobia, scleral icterus. No oral edema or drooling present. Neck: Supple. Trachea midline. No tenderness, rigidity, carotid bruit, stridor , lymphadenopathy, or thyromegaly. Respiratory/Chest: Lungs CTAB. No shortness of breath, chest tenderness, respiratory distress, accessory muscle use. No crackles, rales, rhonchi, stridor , wheezing, dullness Cardiovascular: RRR. S1, S2. No JVD, murmur, bradycardia, tachycardia. Integumentary: Pruritic erythematous plaques present to neck, chest, upper back , abdomen and bilateral lower extremities Neurologic: business mgr II-XII intact. Fully oriented, alert. Appropriate mood/affect. Motor strength 5/5. No appreciable EOM palsy, facial droop or sensory deficit. Past History - Past Medical History Allergies/Adverse Reactions: Allergies Allergy/AdvReac Type Severity Reaction Status Date / Time No Known Drug Allergies Allergy Verified 11/06/18 04:40 food seeweed and mushroom Allergy Difficulty Uncoded 11/06/18 04:40 Breathing Home Medications: Ambulatory Orders Amox-Tr/K Cl [Augmentin - 875Mg Tablet] 1 tab PO BID 7 Days #14 tablet 03/23/18 Triamcinolone 0.5% Ointment [Aristocort 0.5% Ointment -] 1 applic TP BID #1 tube 11/06/18 Anemia: No Asthma: No Cancer: No Cardiac Disorders: Yes (h/o heart mumur) CVA: No COPD: No CHF: No Dementia: No Diabetes: No GI Disorders: Yes (abdominal pain gallbladder) Disorders: No HTN: No Hypercholesterolemia: No Liver Disease: No Seizures: No Thyroid Disease: No - Surgical History Appendectomy: No Cardiac Surgery: No Cholecystectomy: Yes Lung Surgery: No Neurologic Surgery: No Orthopedic Surgery: No - Suicide/Smoking/Psychosocial Hx Smoking History: Never smoked Have you smoked in the past 12 months: No Cigars Per Day: 0 Information on smoking cessation initiated: No Hx Alcohol Use: No Drug/Substance Use Hx: No Substance Use Type: None Hx Substance Use Treatment: No *Physical Exam - Vital Signs Last Vital Signs Temp Pulse Resp BP Pulse Ox 98.6 F 94 H 18 110/65 98 11/06/18 01:38 11/06/18 01:38 11/06/18 01:38 11/06/18 01:38 11/06/18 01:38 Moderate Sedation - Procedure Monitoring Vital Signs: Procedure Monitoring Vital Signs Temperature 98.6 F 11/06/18 01:38 Pulse Rate 94 H 11/06/18 01:38 Respiratory Rate 18 11/06/18 01:38 Blood Pressure 110/65 11/06/18 01:38 O2 Sat by Pulse Oximetry (%) 98 11/06/18 01:38 Medical Decision Making - Medical Decision Making 11/06/18 03:33 A/P: 43-year-old woman with urticaria for 2 days Pruritic raised erythematous plaques present to neck and abdominal wall No stridor Lungs clear to auscultation bilaterally No drooling No oropharyngeal erythema or edema noted Loratadine, Kenalog, reassess *DC/Admit/Observation/Transfer Diagnosis at time of Disposition: Urticaria of unknown origin - Discharge Dispostion Disposition: HOME Condition at time of disposition: Stable Decision to Admit order: No - Prescriptions Prescriptions: Triamcinolone 0.5% Ointment [Aristocort 0.5% Ointment -] 1 applic TP BID #1 tube - Referrals Referrals: Shital Hastings MD [Primary Care Provider] - Sweta Nobles MD [Staff Physician] - - Patient Instructions Additional Instructions: Rest, keep cool and dry- avoid strenuous activity or hot /humid environments Less hot showers, no abrasive soaps May use heavy creams like Eucerin or Cetaphil to keep skin moist May use Benadryl at night for antihistamine, Zyrtec/ Deisy or Claritin for daytime antihistamine use to help with itching May use triamcinilone cream on all areas except face Try to identify cause for rash and avoid exposures You have been given a referral for a software project manager. Call for an appointment within the next 7 days. Followup with PMD in one week if no resolution Make appointment with software project manager for evaluation when possible - Post Discharge Activity Forms/Work/School Notes: Back to Work
[2018-11-06] MEDS ORDERED: hydrOXYzine HCL 25 MG TABLET (FP) PO ONE (04:18)
== END 2018-11-06 04:41 | disposition home or self-care (01) ==
LOC: JER 01:27
PROC: 3E0233Z Introduction of Anti-inflammatory into Muscle, Percutaneous Approach (ICD-10-PCS; principal; 2018-11-06)
DX: L50.9 Urticaria, unspecified (principal); E28.2 Polycystic ovarian syndrome; Z90.49 Acquired absence of other specified parts of digestive tract
CPT/HCPCS: 99282-25

== ENCOUNTER 2018-11-06 13:47 | Observation (INO) | payer OTHER ==
[2018-11-06] MEDS ORDERED: EPINEPHrine/PF 1 MG/1 ML (1:1,000) AMPULE ONE (13:56)
[2018-11-06] MEDS ORDERED: DEXAMETHASONE SOD PHOSPHATE 4 MG/1 ML VIAL ONE (13:56)
[2018-11-06] MEDS ORDERED: ONDANSETRON 4 MG/2 ML VIAL ONE (13:57)
[2018-11-06] MEDS ORDERED: FAMOTIDINE 20 MG/50 ML IVPB 20 MG/50 ML MG IVPB ONE ×3 (14:03→21:12)
[2018-11-06 14:11] VITALS: BMI 35.2
[2018-11-06] MEDS ORDERED: SODIUM CHLORIDE 1,000 ML IV STA (14:13)
--- NOTE | 2018-11-06 14:18 | PDOC ---
History of Present Illness - General Chief Complaint: Allergic Reaction Stated Complaint: ALLERGIC REACTION Time Seen by Provider: 11/06/18 14:02 History Source: Patient Exam Limitations: No Limitations - History of Present Illness Initial Comments: 11/06/18 14:13 Patient is a 43F with history of PCOS and cholecystectomy here today complaining of an allergic reaction. She states that hives started two days ago for which she started taking benadryl at home for. She was evaluated in the ED last night and started on prednisone with benadryl. EMS reports that she was vomiting with BP 90/60 in the field. Fluids, benadryl, dexamethasone, and epi were given in the field. Patient reports improvement with epi. No wheezing facial or throat edema reported in the field. Patient states that her spironolactone dose was increased last wednesday, but otherwise has no new medication, food, shampoo or detergent exposures. Past History - Past Medical History Allergies/Adverse Reactions: Allergies Allergy/AdvReac Type Severity Reaction Status Date / Time No Known Drug Allergies Allergy Verified 11/06/18 14:11 food seeweed and mushroom Allergy Difficulty Uncoded 11/06/18 14:11 Breathing Home Medications: Ambulatory Orders Amox-Tr/K Cl [Augmentin - 875Mg Tablet] 1 tab PO BID 7 Days #14 tablet 03/23/18 Triamcinolone 0.5% Ointment [Aristocort 0.5% Ointment -] 1 applic TP BID #1 tube 11/06/18 Anemia: No Asthma: No Cancer: No Cardiac Disorders: Yes (h/o heart mumur) CVA: No COPD: No CHF: No Dementia: No Diabetes: No GI Disorders: Yes (abdominal pain gallbladder) Disorders: No HTN: No Hypercholesterolemia: No Liver Disease: No Seizures: No Thyroid Disease: No - Surgical History Appendectomy: No Cardiac Surgery: No Cholecystectomy: Yes Lung Surgery: No Neurologic Surgery: No Orthopedic Surgery: No - Immunization History Immunization Up to Date: Yes - Suicide/Smoking/Psychosocial Hx Smoking History: Never smoked Have you smoked in the past 12 months: No Cigars Per Day: 0 Hx Alcohol Use: No Drug/Substance Use Hx: No Substance Use Type: None Hx Substance Use Treatment: No Review of Systems - Review of Systems Comments:: 11/06/18 14:17 GENERAL/CONSTITUTIONAL: No fever or chills. No weakness. HEAD, EYES, EARS, NOSE AND THROAT: No change in vision. No sore throat. CARDIOVASCULAR: No chest pain or shortness of breath RESPIRATORY: No cough, wheezing, or hemoptysis. GASTROINTESTINAL: +nausea, +vomiting, no diarrhea or constipation. GENITOURINARY: No dysuria, frequency, or change in urination. MUSCULOSKELETAL: No joint or muscle swelling or pain. No neck or back pain. SKIN: +rash NEUROLOGIC: No headache, vertigo, loss of consciousness, or change in strength/ sensation. ENDOCRINE: No increased thirst. No abnormal weight change ALLERGIC/IMMUNOLOGIC: +hives +skin allergy. *Physical Exam - Vital Signs Last Vital Signs Temp Pulse Resp BP Pulse Ox 99.8 F H 123 H 18 107/87 100 11/06/18 14:07 11/06/18 14:07 11/06/18 14:07 11/06/18 14:07 11/06/18 14:07 - Physical Exam Comments: 11/06/18 14:18 GENERAL: Awake, alert, and fully oriented, in no acute distress HEAD: No signs of trauma, normocephalic, atraumatic EYES: PERRLA, EOMI, sclera anicteric, conjunctiva clear ENT: Auricles normal inspection, hearing grossly normal, nares patent, oropharynx clear without edema. Moist mucosa NECK: Normal ROM, supple, no lymphadenopathy, JVD, or masses LUNGS: No distress, speaks full sentences, clear to auscultation bilaterally HEART: Tachycardic, normal S1 and S2, no murmurs, rubs or gallops, peripheral pulses normal and equal bilaterally. ABDOMEN: Soft, nontender, normoactive bowel sounds. No guarding, no rebound. No masses EXTREMITIES: Normal inspection, Normal range of motion, no edema. No clubbing or cyanosis. NEUROLOGICAL: Cranial nerves II through XII grossly intact. Normal speech, no focal sensorimotor deficits SKIN: Warm, Dry, diffuse uritcarial rash along neck, torso, legs, arms. Moderate Sedation - Procedure Monitoring Vital Signs: Procedure Monitoring Vital Signs Temperature 99.8 F H 11/06/18 14:07 Pulse Rate 123 H 11/06/18 14:07 Respiratory Rate 18 11/06/18 14:07 Blood Pressure 107/87 11/06/18 14:07 O2 Sat by Pulse Oximetry (%) 100 11/06/18 14:07 ED Treatment Course - LABORATORY CBC & Chemistry Diagram: 11/06/18 14:55 11/06/18 14:03 - RADIOLOGY Radiology Studies Ordered: Category Date Time Status CHEST X-RAY PORTABLE* [RAD] Stat Radiology 11/06/18 14:03 Ordered Medical Decision Making - Medical Decision Making 11/06/18 14:18 Patient is 43F here today with allergic reaction. Vitals notable for tachycardia , otherwise stable. Patient meets anaphylactic criteria. Given steroids, fluids , zofran, benadryl in field. Will give pepcid here. Will continue to monitor. Patient likely will require observation admission given low blood pressures in field and extended reaction to unknown material. 11/06/18 15:04 EKG shows sinus tachycardia with rate of 118. Normal axis. Normal intervals. Lateral t wave inversions. Borderline st depressions in lateral leads. 11/06/18 15:56 Laboratory Tests 11/06/18 11/06/18 11/06/18 14:03 14:55 14:55 WBC 16.4 H Hgb 15.6 H Plt Count 237 INR BUN 17 Creatinine 0.9 Serum , Qual Negative 11/06/18 14:55 WBC Hgb Plt Count INR 1.13 H BUN Creatinine Serum , Qual CBC shows leukocytosis. CMP reassuring. Preg negative. Troponin, CXR pending. Patient has required more benadryl. Will admit. 11/06/18 15:59 CXR shows no acute cardiopulmonary process. 11/06/18 16:32 Trop undetectable. *DC/Admit/Observation/Transfer Diagnosis at time of Disposition: Anaphylaxis - Discharge Dispostion Condition at time of disposition: Stable Decision to Admit order: Yes - Referrals Referrals: Shital Hastings MD [Primary Care Provider] - - Patient Instructions - Post Discharge Activity
--- NOTE | 2018-11-06 14:41 | PDOC ---
Attending Attestation - Resident Resident Name: Lamont Gifford - ED Attending Attestation I have performed the following: I have examined & evaluated the patient, The case was reviewed & discussed with the resident, I agree w/resident's findings & plan, Exceptions are as noted - HPI HPI: 11/06/18 14:37 43 year old female with PMH PCOS p/w allergic reaction. The patient was seen earlier today for allergic reaction. Pt is allergic to seeweed and mushroom, but denies any exposure. Denies new soaps, shampoos, clothing, etc. This morning, was d/c'd with steroids and benadryl. However, despite taking steroids and benadryl, pt continued to have diffuse urticaria. No chest pain, SOB, palpitations, nausea, vomiting, diarrhea. EMS was activated. Pt was noted to be breathing comfortably. Noted to have 90s systolic. EMS was given epipen, 10 mg IV decadron, and 25 mg IV bendaryl. Pt reports feeling significantly better with the medications, but still with urticaria. - Physicial Exam PE: 11/06/18 15:03 GENERAL: Awake, alert, and fully oriented, in no acute distress HEAD: No signs of trauma EYES: EOMI, sclera anicteric, conjunctiva clear ENT: Auricles normal inspection, hearing grossly normal, nares patent, Moist mucosa. Oropharynx clear without edema. NECK: Normal ROM, supple, LUNGS: Breath sounds equal, clear to auscultation bilaterally. No wheezes, and no crackles HEART: Regular rate and rhythm, normal S1 and S2, no murmurs, rubs or gallops ABDOMEN: Soft, nontender, No guarding, no rebound. No masses EXTREMITIES: Normal range of motion, no edema. No clubbing or cyanosis. No cords, erythema, or tenderness NEUROLOGICAL: Cranial nerves II through XII grossly intact. Normal speech, normal gait SKIN: Diffuse urticaria chest, back and upper and lower extremities. - Medical Decision Making 11/06/18 15:04 Vital Signs Temp Pulse Resp BP Pulse Ox 99.8 F H 123 H 18 107/87 100 11/06/18 14:07 11/06/18 14:07 11/06/18 14:07 11/06/18 14:07 11/06/18 14:07 Pt continues to have persistent urticaria and allergic reaction despite max outpatient therapy. Will need IV steroids and benadryl, +/- epipen. Admit 2/2 outpatient failure. No airway compromise at this time. Heart Score/ECG Review #1 ECG reviewed & interpreted by me at: 13:05 11/06/18 14:39 NSR 118 TWI V3-V6, no std/azul, normal axis, normal intervals, QTC 445 msec
[2018-11-06 15:18] LABS: EOS % 0.2 % (0-4.5); HEMOGLOBIN 15.6 GM/dL (10.7-15.3); MEAN CELL VOLUME 86.2 fl (80-96); RDW 12.7 % (11.6-15.6)
[2018-11-06 15:20] LABS: INR 1.13 (0.83-1.09); PROTHROMBIN TIME (PATIENT) 13.4 SEC (9.7-13.0)
[2018-11-06 15:33] LABS: BASO % 0.1 % (0-2.0); HEMATOCRIT 46.7 % (32.4-45.2); MCH 28.7 pg (25.7-33.7); MCHC 33.3 g/dl (32.0-36.0); MEAN PLT VOLUME 7.6 fl (7.5-11.1); NEUT % 84.7 % (42.8-82.8); PLATELET COUNT 237 K/MM3 (134-434); RBC 5.42 M/mm3 (3.60-5.2); WHITE BLOOD COUNT 16.4 K/mm3 (4.0-10.0)
[2018-11-06 15:34] LABS: ALBUMIN 3.5 g/dl (3.4-5.0); ALK PHOS 64 U/L (45-117); ANION GAP 8 MMOL/L (8-16); BILIRUBIN,TOTAL 0.8 mg/dL (0.2-1); BLOOD UREA NITROGEN 17 mg/dL (7-18); CALCIUM 8.3 mg/dL (8.5-10.1); CHLORIDE 104 mmol/L (98-107); CO2 25 mmol/L (21-32); CREATININE 0.9 mg/dL (0.55-1.3); GLUCOSE,RANDOM 142 mg/dL (74-106); POTASSIUM 4.1 mmol/L (3.5-5.1); SGOT/AST 17 U/L (15-37); SGPT/ALT 12 U/L (13-61); SODIUM 137 mmol/L (136-145); TOT PROT 6.4 g/dl (6.4-8.2)
[2018-11-06 17:44] LABS: ANISOCYTOSIS 1+; MACROCYTOSIS 1+; PLATELET ESTIMATE ADEQUATE
[2018-11-06] MEDS ORDERED: PANTOPRAZOLE 40 MG TABLET (FP) PO ONE (18:29)
--- NOTE | 2018-11-06 18:30 | HP ---
CHIEF COMPLAINT: generalized rash PCP: Dr. Hastings HISTORY OF PRESENT ILLNESS: Patient is a 43 year old female with a significant past medical history of PCOS and cholecystectomy. She presents to the ED via EMS with complaints of an allergic reaction with generalized skin welts and hives. Patient reports that the hives and skin welts began two days ago, on Wednesday when she was at a hotel in [place]. She took benadryl with minimal relief. Patient was evaluated at [facility] early this a.m. and was sent home with prednisone and benadryl. She took both medications at home without relief but continued to have diffused urticaria. EMS was activated. En route to the ED, patient was given epi pen, IV decadron 10mg, and benadryl 25mg IV. Patient reports feeling better but the hives persist. She denies any shortness of breath or dyspnea. Her lungs are clear bilaterally, her tongue is not swollen and she denies any difficulty swallowing. Patient's history includes PCOS which she was on spironolactone 25mg daily. Her dose was increased to sprinolactone 50mg by her HEEL [employer] on Wednesday when her symptoms began. Patient denies any new medications, foods, soaps or detergent exposures. Patient has allergy to seeweed and muschroom but denies exposure. Recent Travel: PAST MEDICAL HISTORY: PAST SURGICAL HISTORY: Social History: Smoking: denies Alcohol:denies Drugs: denies Family History: Allergies No Known Drug Allergies Allergy (Verified 11/06/18 14:11) food seeweed and mushroom Allergy (Uncoded 11/06/18 14:11) Difficulty Breathing rash HOME MEDICATIONS: Home Medications Medication Instructions Recorded NK [No Known Home Medication] 11/06/18 PHYSICAL EXAMINATION Vital Signs - 24 hr 11/06/18 11/06/18 14:07 14:13 Temperature 99.8 F H Pulse Rate 123 H Respiratory 18 18 Rate Blood Pressure 107/87 O2 Sat by Pulse 100 100 Oximetry (%) GENERAL: Awake, alert, and fully oriented, in no acute distress. HEAD: Normal with no signs of trauma. EYES: Pupils equal, round and reactive to light, extraocular movements intact, sclera anicteric, conjunctiva clear. No lid lag. EARS, NOSE, THROAT: Ears normal, nares patent, oropharynx clear without exudates. Moist mucous membranes. NECK: Normal range of motion, supple without lymphadenopathy, JVD, or masses. LUNGS: Breath sounds equal, clear to auscultation bilaterally. No wheezes HEART: Regular rate and rhythm ABDOMEN: Soft, nontender, not distended, normoactive bowel sounds, no guarding, no rebound, no masses. No hepatomegaly or splenomegaly. MUSCULOSKELETAL: Normal range of motion at all joints. No bony deformities or tenderness. No CVA tenderness. UPPER EXTREMITIES: mild non pitting edema on bilateral arms, SKIN: Pruritic erythematous plaques present to neck, chest, upper back, abdomen and bilateral lower extremities Laboratory Results - last 24 hr 11/06/18 11/06/18 11/06/18 14:03 14:55 14:55 WBC 16.4 H RBC 5.42 H Hgb 15.6 H Hct 46.7 H D MCV 86.2 MCH 28.7 MCHC 33.3 RDW 12.7 Plt Count 237 MPV 7.6 Absolute Neuts (auto) 13.9 H Neutrophils % 84.7 H Neutrophils % (Manual) 86.0 H Lymphocytes % 12.0 Lymphocytes % (Manual) 7.0 L Monocytes % 3.0 L Monocytes % (Manual) 5 Eosinophils % 0.2 D Eosinophils % (Manual) 2.0 Basophils % 0.1 Nucleated RBC % 0 Platelet Estimate Adequate Platelet Comment No clumping noted Anisocytosis 1+ Macrocytosis 1+ PT with INR INR Sodium 137 Potassium 4.1 Chloride 104 Carbon Dioxide 25 Anion Gap 8 BUN 17 Creatinine 0.9 Creat Clearance w eGFR > 60 Random Glucose 142 H Calcium 8.3 L Total Bilirubin 0.8 AST 17 ALT 12 L Alkaline Phosphatase 64 Creatine Kinase 51 Troponin I < 0.02 Total Protein 6.4 Albumin 3.5 Serum , Qual Negative 11/06/18 14:55 WBC RBC Hgb Hct MCV MCH MCHC RDW Plt Count MPV Absolute Neuts (auto) Neutrophils % Neutrophils % (Manual) Lymphocytes % Lymphocytes % (Manual) Monocytes % Monocytes % (Manual) Eosinophils % Eosinophils % (Manual) Basophils % Nucleated RBC % Platelet Estimate Platelet Comment Anisocytosis Macrocytosis PT with INR 13.40 H INR 1.13 H Sodium Potassium Chloride Carbon Dioxide Anion Gap BUN Creatinine Creat Clearance w eGFR Random Glucose Calcium Total Bilirubin AST ALT Alkaline Phosphatase Creatine Kinase Troponin I Total Protein Albumin Serum , Qual ASSESSMENT/PLAN: Patient is a 43 year old female with a significant past medical history of PCOS and cholecystectomy. She presents to the ED via EMS with complaints of an allergic reaction with generalized skin welts and hives. Patient reports that the hives and skin welts began two days ago, on Wednesday when she was at a hotel in [place]. She took benadryl with minimal relief. Patient was evaluated at [facility] early this a.m. and was sent home with prednisone and benadryl. She took both medications at home without relief but continued to have diffused urticaria. EMS was activated. En route to the ED, patient was given epi pen, IV decadron 10mg, and benadryl 25mg IV. Patient reports feeling better but the hives persist. She denies any shortness of breath or dyspnea. Her lungs are clear bilaterally, her tongue is not swollen and she denies any difficulty swallowing. Anaphylaxis, likely secondary to aldactone vs other source Monitor vitals, labs solumedrol q8 scheduled pepcid bid benadryl iv bid IVF derm consulted Monitor airway will need outpatient allergy testing fen ns @ 50cc/hr monitor electrolytes low salt diet prophy los <48 hours Visit type - Emergency Visit Emergency Visit: Yes ED Registration Date: 11/06/18 Care time: The patient presented to the Emergency Department on the above date and was hospitalized for further evaluation of their emergent condition. - New Patient This patient is new to me today: Yes Date on this admission: 11/07/18 - Critical Care Critical Care patient: No
[2018-11-06] MEDS ORDERED: methylPREDNISolone NA SUCC 40 MG/1 ML VIAL ONE (19:12)
[2018-11-06] MEDS ORDERED: PANTOPRAZOLE 40 MG TABLET (FP) ONE (19:12)
[2018-11-06] MEDS: methylPREDNISolone NA SUCC 40 MG/1 ML VIAL IVPUSH SCH (19:16)
[2018-11-06] MEDS ORDERED: diphenhydrAMINE HCL 25 MG CAPSULE (FP) PO ONE (21:12)
[2018-11-06] MEDS: FAMOTIDINE 20 MG/50 ML IVPB 20 MG/50 ML MG IVPB SCH (22:55)
[2018-11-06] MEDS ORDERED: SODIUM CHLORIDE 1,000 ML IV SCH ×2 (23:00)
[2018-11-07] MEDS: methylPREDNISolone NA SUCC 40 MG/1 ML VIAL IVPUSH SCH ×2 (03:24→11:47)
[2018-11-07 06:19] LABS: HEMATOCRIT 42.2 % (32.4-45.2); HEMOGLOBIN 14.1 GM/dL (10.7-15.3); MCH 28.7 pg (25.7-33.7); MCHC 33.4 g/dl (32.0-36.0); MEAN CELL VOLUME 85.8 fl (80-96); MEAN PLT VOLUME 7.3 fl (7.5-11.1); PLATELET COUNT 214 K/MM3 (134-434); RBC 4.92 M/mm3 (3.60-5.2); RDW 12.4 % (11.6-15.6); WHITE BLOOD COUNT 12.7 K/mm3 (4.0-10.0)
[2018-11-07 06:51] LABS: ANION GAP 7 MMOL/L (8-16); BLOOD UREA NITROGEN 15 mg/dL (7-18); CALCIUM 8.3 mg/dL (8.5-10.1); CHLORIDE 108 mmol/L (98-107); CO2 23 mmol/L (21-32); CREATININE 0.6 mg/dL (0.55-1.3); GLUCOSE,RANDOM 145 mg/dL (74-106); POTASSIUM 4.5 mmol/L (3.5-5.1); SODIUM 139 mmol/L (136-145)
--- NOTE | 2018-11-07 11:43 | DS ---
Physical Exam: SUBJECTIVE: Patient seen and examined OBJECTIVE: Vital Signs Period Temp Pulse Resp BP Sys/Harrell Pulse Ox Last 24 Hr 98 F-99.8 F 88-123 16-20 104-111/50-87 97-100 PHYSICAL EXAM GENERAL: The patient is awake, alert, and fully oriented, in no acute distress. HEAD: Normal with no signs of trauma. EYES: PERRL, extraocular movements intact, sclera anicteric, conjunctiva clear. ENT: Ears normal, nares patent, oropharynx clear without exudates, moist mucous membranes. NECK: Trachea midline, full range of motion, supple. LUNGS: Breath sounds equal, clear to auscultation bilaterally, no wheezes, no crackles, no accessory muscle use. HEART: Regular rate and rhythm, S1, S2 without murmur, rub or gallop. ABDOMEN: Soft, nontender, nondistended, normoactive bowel sounds, no guarding, no rebound, no hepatosplenomegaly, no masses. EXTREMITIES: 2+ pulses, warm, well-perfused, no edema. NEUROLOGICAL: Cranial nerves II through XII grossly intact. Normal speech, gait not observed. PSYCH: Normal mood, normal affect. SKIN: Warm, dry, normal turgor, no rashes or lesions noted. LABS Laboratory Results - last 24 hr 11/06/18 11/06/18 11/06/18 14:03 14:55 14:55 WBC 16.4 H RBC 5.42 H Hgb 15.6 H Hct 46.7 H D MCV 86.2 MCH 28.7 MCHC 33.3 RDW 12.7 Plt Count 237 MPV 7.6 Absolute Neuts (auto) 13.9 H Neutrophils % 84.7 H Neutrophils % (Manual) 86.0 H Lymphocytes % 12.0 Lymphocytes % (Manual) 7.0 L Monocytes % 3.0 L Monocytes % (Manual) 5 Eosinophils % 0.2 D Eosinophils % (Manual) 2.0 Basophils % 0.1 Nucleated RBC % 0 Platelet Estimate Adequate Platelet Comment No clumping noted Anisocytosis 1+ Macrocytosis 1+ PT with INR INR Sodium 137 Potassium 4.1 Chloride 104 Carbon Dioxide 25 Anion Gap 8 BUN 17 Creatinine 0.9 Creat Clearance w eGFR > 60 Random Glucose 142 H Calcium 8.3 L Magnesium Total Bilirubin 0.8 AST 17 ALT 12 L Alkaline Phosphatase 64 Creatine Kinase 51 Troponin I < 0.02 Total Protein 6.4 Albumin 3.5 Serum , Qual Negative 11/06/18 11/07/18 11/07/18 14:55 05:30 05:30 WBC 12.7 H RBC 4.92 Hgb 14.1 Hct 42.2 MCV 85.8 MCH 28.7 MCHC 33.4 RDW 12.4 Plt Count 214 MPV 7.3 L Absolute Neuts (auto) Neutrophils % Neutrophils % (Manual) Lymphocytes % Lymphocytes % (Manual) Monocytes % Monocytes % (Manual) Eosinophils % Eosinophils % (Manual) Basophils % Nucleated RBC % Platelet Estimate Platelet Comment Anisocytosis Macrocytosis PT with INR 13.40 H INR 1.13 H Sodium 139 Potassium 4.5 Chloride 108 H Carbon Dioxide 23 Anion Gap 7 L BUN 15 Creatinine 0.6 Creat Clearance w eGFR > 60 Random Glucose 145 H Calcium 8.3 L Magnesium 2.0 Total Bilirubin AST ALT Alkaline Phosphatase Creatine Kinase Troponin I Total Protein Albumin Serum , Qual HOSPITAL COURSE: Date of Admission:11/06/18 Date of Discharge: 11/07/18 Discharge Summary Reason For Visit: ANAPHYLAXIS Current Active Problems Anaphylaxis (Acute) Condition: Stable - Instructions Referrals: Shital Hastings MD [Primary Care Provider] - - Home Medications Comprehensive Discharge Medication List: Ambulatory Orders Spironolactone 50 mg PO DAILY 11/06/18
[2018-11-07] MEDS: FAMOTIDINE 20 MG/50 ML IVPB 20 MG/50 ML MG IVPB SCH (11:47)
--- NOTE | 2018-11-07 11:51 | DS ---
Physical Exam: SUBJECTIVE: Patient seen and examined at the bedside. Feels better, no problems with her breathing or swallowing. Hives and welts are improved. Wants to go home. Patient to follow up with her steel buffer and driller operator outpatient. OBJECTIVE: Vital Signs Period Temp Pulse Resp BP Sys/Harrell Pulse Ox Last 24 Hr 98 F-99.8 F 88-123 16-20 104-111/50-87 97-100 PHYSICAL EXAM GENERAL: Awake, alert, and fully oriented, in no acute distress. HEAD: Normal with no signs of trauma. EYES: Pupils equal, round and reactive to light, extraocular movements intact, sclera anicteric, conjunctiva clear. No lid lag. EARS, NOSE, THROAT: Ears normal, nares patent, oropharynx clear without exudates. Moist mucous membranes. NECK: Normal range of motion, supple without lymphadenopathy, JVD, or masses. LUNGS: Breath sounds equal, clear to auscultation bilaterally. No wheezes HEART: Regular rate and rhythm ABDOMEN: Soft, nontender, not distended, normoactive bowel sounds, no guarding, no rebound, no masses. No hepatomegaly or splenomegaly. MUSCULOSKELETAL: Normal range of motion at all joints. No bony deformities or tenderness. No CVA tenderness. UPPER EXTREMITIES: mild non pitting edema on bilateral arms, SKIN: erythematous plaques present to neck, chest, upper back, abdomen and bilateral lower extremities - much improved since yesterday. LABS Laboratory Results - last 24 hr 11/06/18 11/06/18 11/06/18 14:03 14:55 14:55 WBC 16.4 H RBC 5.42 H Hgb 15.6 H Hct 46.7 H D MCV 86.2 MCH 28.7 MCHC 33.3 RDW 12.7 Plt Count 237 MPV 7.6 Absolute Neuts (auto) 13.9 H Neutrophils % 84.7 H Neutrophils % (Manual) 86.0 H Lymphocytes % 12.0 Lymphocytes % (Manual) 7.0 L Monocytes % 3.0 L Monocytes % (Manual) 5 Eosinophils % 0.2 D Eosinophils % (Manual) 2.0 Basophils % 0.1 Nucleated RBC % 0 Platelet Estimate Adequate Platelet Comment No clumping noted Anisocytosis 1+ Macrocytosis 1+ PT with INR INR Sodium 137 Potassium 4.1 Chloride 104 Carbon Dioxide 25 Anion Gap 8 BUN 17 Creatinine 0.9 Creat Clearance w eGFR > 60 Random Glucose 142 H Calcium 8.3 L Magnesium Total Bilirubin 0.8 AST 17 ALT 12 L Alkaline Phosphatase 64 Creatine Kinase 51 Troponin I < 0.02 Total Protein 6.4 Albumin 3.5 Serum , Qual Negative 11/06/18 11/07/18 11/07/18 14:55 05:30 05:30 WBC 12.7 H RBC 4.92 Hgb 14.1 Hct 42.2 MCV 85.8 MCH 28.7 MCHC 33.4 RDW 12.4 Plt Count 214 MPV 7.3 L Absolute Neuts (auto) Neutrophils % Neutrophils % (Manual) Lymphocytes % Lymphocytes % (Manual) Monocytes % Monocytes % (Manual) Eosinophils % Eosinophils % (Manual) Basophils % Nucleated RBC % Platelet Estimate Platelet Comment Anisocytosis Macrocytosis PT with INR 13.40 H INR 1.13 H Sodium 139 Potassium 4.5 Chloride 108 H Carbon Dioxide 23 Anion Gap 7 L BUN 15 Creatinine 0.6 Creat Clearance w eGFR > 60 Random Glucose 145 H Calcium 8.3 L Magnesium 2.0 Total Bilirubin AST ALT Alkaline Phosphatase Creatine Kinase Troponin I Total Protein Albumin Serum , Qual HOSPITAL COURSE: Patient is a 43 year old female with a significant past medical history of PCOS and cholecystectomy. She presents to the ED via EMS with complaints of an allergic reaction with generalized skin welts and hives. Patient reports that the hives and skin welts began two days ago, on Wednesday when she was at a hotel in [place]. She took benadryl with minimal relief. Patient was evaluated at [facility] ER early on 11/06 and was sent home with prednisone and benadryl. She took both medications at home without relief but continued to have diffused urticaria. EMS was activated. En route to the ED, patient was given epi pen, IV decadron 10mg, and benadryl 25mg IV. Patient was placed under observation and given solumedrol 40mg every 8 hrs overnight as well as benadryl and pepcid IV. On exam, patient reports to feel much improved. She has no wheezing, no trouble swallowing. Skin hives/welts are improving. She will be sent home today and advised to stop the spironolactone. She will be sent home on a prednisone taper , benadryl and pepcid. Patient to see an driller operator outpatient for further testing. Anaphylaxis, likely secondary to aldactone vs other source Vitals signs and labs are stable Airway is not compromised. tolerating room air. clear speech, no swallowing difficulty. Convert to prednisone taper Pepcid BID Benadryl 50mg every 6 hours will need outpatient allergy testing Date of Admission:11/06/18 Date of Discharge: 11/07/18 Minutes to complete discharge: 60 Discharge Summary Reason For Visit: ANAPHYLAXIS Current Active Problems Anaphylaxis (Acute) Condition: Stable - Instructions Diet, Activity, Other Instructions: Mrs Roberts: You were placed under observation at [facility] for Anaphylasis. You were treated with IV steriods (Solumedrol), IV Benadryl and IV Pepcid. Here are our recommendations: Anapylaxis Anaphylaxis is a severe immune response reaction that consists of shortness of breath, skin hives, welts and diffused itchyness. We will send you home with Prednisone taper as follows: Prednisone 60mg once day at 8am on 11/08/2018 Prednisone 50mg once day at 8am on 11/09/2018 Prednisone 40mg once day at 8am on 11/10/2018 Prednisone 30mg once day at 8am on 11/11/2018 Prednisone 20mg once day at 8am on 11/12/2018 - this is your last dose We recommend that you follow up with a measuring clerk and driller operator that accepts your insurance for further workup. DO NOT TAKE THE SPRIOLACTALONE. Please follow up with your steel buffer. New Medications: Prednisone (take as instructed above) (Prescription sent) Benadryl 50mg every 6 hours (over the counter) Pepcid twice per day (over the counter) Please return to the ER if your symptoms persist or worsen. Referrals: Shital Hastings MD [Primary Care Provider] - Disposition: HOME This patient is new to me today: No Emergency Visit: Yes ED Registration Date: 11/06/18 Care time: The patient presented to the Emergency Department on the above date and was hospitalized for further evaluation of their emergent condition. Critical Care patient: No - Discharge Referral Referred to [facility] No
[2018-11-07 12:20] VITALS: BP 102/62; PULSE 92; TEMP 98.1
--- NOTE | 2018-11-07 12:20 | EKG ---
Test Reason : Blood Pressure : / mmHG Vent. Rate : 118 BPM Atrial Rate : 118 BPM P-R Int : 124 ms QRS Dur : 076 ms QT Int : 318 ms P-R-T Axes : 055 006 051 degrees QTc Int : 445 ms SINUS TACHYCARDIA ABNORMAL ECG WHEN COMPARED WITH ECG OF 14-FEB-2018 16:16, NO SIGNIFICANT CHANGE WAS FOUND Confirmed by AYAZ BERNSTEIN MD ([id number]) on 11/07/2018 12:19:43 PM Referred By: Confirmed By:AYAZ BERNSTEIN MD
== END 2018-11-07 12:49 | disposition home or self-care (01) ==
LOC: JER 13:47 → JERBED 17:46
PROVIDERS: ADMIT Internal Medicine; ATTEND Nurse Practitioner Family
PROC: 3E0333Z Introduction of Anti-inflammatory into Peripheral Vein, Percutaneous Approach (ICD-10-PCS; principal; 2018-11-06)
PROC: 3E033GC Introduction of Other Therapeutic Substance into Peripheral Vein, Percutaneous Approach (ICD-10-PCS; 2018-11-06)
PROC: 3E0337Z Introduction of Electrolytic and Water Balance Substance into Peripheral Vein, Percutaneous Approach (ICD-10-PCS; 2018-11-06)
DX: T78.2XXA Anaphylactic shock, unspecified, initial encounter (principal); E28.2 Polycystic ovarian syndrome
CPT/HCPCS: 36415; 71045-TC-FY; 80048; 80053; 82550; 83735; 84484; 84703; 85025; 85027; 85610; 93005; 93010; 99284-25; G0378; J7030

== ENCOUNTER 2023-06-05 20:47 | Emergency (ER) | payer OTHER ==
[2023-06-05 20:52] VITALS: BP 111/77; PULSE 90; RESP 18; TEMP 98.5; BMI 32.2
== END 2023-06-05 22:35 | disposition home or self-care (01) ==
LOC: JER 20:47
DX: S93.401A Sprain of unspecified ligament of right ankle, initial encounter (principal); M25.571 Pain in right ankle and joints of right foot; W19.XXXA Unspecified fall, initial encounter; X50.0XXA Overexertion from strenuous movement or load, initial encounter
CPT/HCPCS: 73610-TC-RT-FY; 73630-TC-RT-FY; 99283-25